=== PATIENT | female | born 1995 | race Caucasian/White ===

== ENCOUNTER → 2020-06-05 | Outpatient (CLI) | payer OTHER ==
--- NOTE | 2020-06-05 17:19 | Diagnostic Imaging Report ---
INDICATION: Pain. FINDINGS: The lumbar stature is normal. The alignment is anatomic. The disc space is preserved. The facet relationship is normal. IMPRESSION: Normal radiographic appearance of the anatomically aligned lumbar spine. Dictated by: Dictated on workstation # [id number]
--- NOTE | 2020-06-05 18:05 | Diagnostic Imaging Report ---
Indication: Injury, pain. Findings: Frontal and lateral sacrococcygeal radiographs showed normal appearance of the SI joints and symphysis. Sacrococcygeal curvature appeared unremarkable however the coccygeal segments are partially obscured on a technical basis. Impression: No acute appearing abnormality. No pathological finding apparent. Dictated by: Dictated on workstation # [id number]
--- NOTE | 2020-06-05 18:06 | Diagnostic Imaging Report ---
Indication: Pain. Frontal and lateral sacrococcygeal radiographs showed normal sacrococcygeal curvature. The SI joints and symphysis intact. No fracture identified. Hips intact. Pubic rings intact. Impression: No acute-appearing abnormality. Dictated by: Dictated on workstation # [id number]
== END ==
LOC: RAD 14:47
PROVIDERS: ATTEND Internal Medicine
DX: M54.5 Low back pain (principal)
CPT/HCPCS: 72100; 72170; 72220

== ENCOUNTER → 2021-10-15 | Outpatient (CLI) | payer BC ==
--- NOTE | 2021-10-15 15:35 | Diagnostic Imaging Report ---
PROCEDURE: US Non-ob pelvis comp/trans. INDICATION: PELVIC PAIN TECHNIQUE: Multiple real time hernandez scale sonographic images were obtained of the pelvis transabdominally and endovaginally. CORRELATION STUDY: None FINDINGS: UTERUS: 5.7 x 3.2 x 4.3 cm. The uterus appearing unremarkable. ENDOMETRIUM: 0.2 cm. The endometrium is of normal thickness. RIGHT OVARY: 2.9 x 1.3 x 2.0 cm. The right ovary has an unremarkable appearance. No concerning mass. Presence of blood flow. LEFT OVARY: 2.5 x 1.1 x 1.5 cm. The left ovary has an unremarkable appearance. No concerning mass. Blood flow is present. Small amount of fluid in the pelvic cul-de-sac. IMPRESSION: 1. Unremarkable appearing pelvic ultrasound examination. Dictated by: Dictated on workstation # [id number]
== END ==
LOC: RAD 13:29
PROVIDERS: ATTEND Internal Medicine
DX: R10.2 Pelvic and perineal pain (principal)
CPT/HCPCS: 76830; 76856